=== PATIENT | male | born 1985 | race African-American/Black ===

== ENCOUNTER 2019-01-27 06:58 | Emergency (ER) | payer SELFPAY ==
[~2019-01-27] VITALS: Ht 180.3 cm; Wt 107.7 kg
[~2019-01-27 06:58] MED LIST: AMOXICILLIN500 MG OR; AMOXICILLIN500 MG PO; CLINDAMYCIN300 M1 PO; MUCINEX600 MG PO; NAPROSYN500 MG OR; NO HOME MEDS; ROBITUSSIN AC10 ML OR; SUDAFED 12HR120 MG PO; SUDAFED PO; TORADOL PO; VOLTAREN - GENE75 MG PO; ZITHROMAX250 MG PO
[2019-01-27] MEDS ORDERED: ALL DAY10 MG PO (07:28)
[2019-01-27 07:49] VITALS: BP 131/82
== END 2019-01-27 07:49 | disposition home or self-care (01) | DRG 156 ==
LOC: ED 06:58
DX: H93.8X2 Other specified disorders of left ear (principal)

== ENCOUNTER 2019-02-26 06:41 | Emergency (ER) | payer SELFPAY ==
[~2019-02-26] VITALS: Ht 180.3 cm; Wt 107.2 kg
[~2019-02-26 06:41] MED LIST changes: +ALL DAY10 MG PO; +ULTRAM50 MG PO
[2019-02-26 07:38] LABS: URINE BILIRUBIN - DIPSTICK NEGATIVE (NEGATIVE); URINE BLOOD DIPSTICK SMALL (NEGATIVE); URINE COLOR YELLOW; URINE GLUCOSE - DIPSTICK NEGATIVE (NEGATIVE); URINE KETONE NEGATIVE (NEGATIVE); URINE LEUK ESTERASE NEGATIVE (NEGATIVE); URINE NITRITE - DIPSTICK NEGATIVE (Negative); URINE PROTEIN - DIPSTICK NEGATIVE (NEG-TRACE); URINE UROBILINOGEN - DIPSTICK 0.2 E.U./dL (0.2)
[2019-02-26 07:43] LABS: HEMOGLOBIN 13.1 g/dl (14.0-18.0); IMMATURE GRANULOCYTES 0.1 % (0.0-5.0); MEAN CELL VOLUME 90.3 fL CALC (80.0-100.0); MEAN CORPUSCULAR HGB 29.6 pG CALC (26.0-32.0); MEAN CORPUSCULAR HGB CONC 32.8 g/L CALC (32.0-36.0); NEUT# 5.18 thou/uL (1.82-7.42); RED BLOOD COUNT 4.43 mill/uL (4.70-6.10)
[2019-02-26 07:46] LABS: URINE RBC 0-2 RBC/hpf (0-5); URINE WBC 0-2 WBC/hpf (0-5)
[2019-02-26 08:02] LABS: ALBUMIN 4.2 g/dL (3.2-5.0); ALKALINE PHOSPHATASE 81 u/l (38-126); ANION GAP 15 (6-22 (CALC)); BILIRUBIN, TOTAL 0.7 mg/dL (0.0-1.4); BUN 15 mg/dL (9-20); BUN/CREATININE RATIO 11 (12-20 (CALC)); CARBON DIOXIDE 26 mmol/l (22-30); CHLORIDE 103 mmol/l (95-108); CREATININE 1.4 mg/dL (0.7-1.3); GFR 59 ML/MIN (>=60 (CALC)); GFR FOR AFR.AMER. > 60 ML/MIN (>=60 (CALC)); LIPASE 33 u/l (23-300); POTASSIUM 4.1 mmol/l (3.5-5.1); SGOT/AST 25 u/l (17-59); SODIUM 140 mmol/l (137-146); TOTAL PROTEIN 7.5 g/dL (6.3-8.2)
[2019-02-26] MEDS ORDERED: ONDANSETRON4 MG PO (08:10)
[2019-02-26] MEDS ORDERED: MIRALAX3350 N1 PO (08:10)
[2019-02-26 09:36] VITALS: BP 136/83
== END 2019-02-26 09:36 | disposition home or self-care (01) | DRG 392 ==
LOC: ED 06:41
PROVIDERS: Family Medicine
DX: K52.9 Noninfective gastroenteritis and colitis, unspecified (principal); K29.70 Gastritis, unspecified, without bleeding

== ENCOUNTER 2019-03-20 07:07 | Emergency (ER) | payer BC ==
[~2019-03-20] VITALS: Ht 180.3 cm; Wt 100.0 kg
[~2019-03-20 07:07] MED LIST changes: +MIRALAX3350 N1 PO; +ONDANSETRON4 MG PO
[2019-03-20] MEDS ORDERED: AMOXICILLIN500 M2 PO (07:49)
[2019-03-20 08:02] VITALS: BP 144/76
== END 2019-03-20 08:12 | disposition home or self-care (01) | DRG 153 ==
LOC: ED 07:07
DX: J02.9 Acute pharyngitis, unspecified (principal)

== ENCOUNTER 2020-01-29 08:52 | Emergency (ER) | payer BC ==
[~2020-01-29] VITALS: Ht 182.9 cm; Wt 103.5 kg
[~2020-01-29 08:52] MED LIST changes: +AMOXICILLIN500 M2 PO
[2020-01-29] MEDS ORDERED: AMOXICILLIN500 MG PO (09:44)
[2020-01-29 09:59] VITALS: BP 142/81
== END 2020-01-29 10:13 | disposition home or self-care (01) | DRG 153 ==
LOC: ED 08:52
DX: H66.91 Otitis media, unspecified, right ear (principal); J32.9 Chronic sinusitis, unspecified

== ENCOUNTER 2021-03-05 10:43 | Emergency (ER) | payer BC ==
[~2021-03-05] VITALS: Ht 182.9 cm; Wt 104.4 kg
[2021-03-05] MEDS ORDERED: PROAIR HFA108 MCG/AC PO (12:10)
[2021-03-05] MEDS ORDERED: TAM75CAP PO (12:10)
[2021-03-05 12:35] VITALS: BP 148/74
== END 2021-03-05 12:35 | disposition home or self-care (01) | DRG 153 ==
LOC: ED 10:43
DX: J11.1 Influenza due to unidentified influenza virus with other respiratory manifestations (principal); Z20.822 Contact with and (suspected) exposure to COVID-19

== ENCOUNTER 2021-10-22 18:53 | Emergency (ER) | payer BC ==
[~2021-10-22] VITALS: Ht 182.9 cm; Wt 100.0 kg
[~2021-10-22 18:53] MED LIST changes: +PROAIR HFA108 MCG/AC PO; +TAM75CAP PO
[2021-10-22] MEDS ORDERED: LISINOPRIL2.5 MG PO (20:27)
[2021-10-22] MEDS ORDERED: CHOLESTEROL DEFENSE (20:27)
[2021-10-22 20:58] LABS: HEMATOCRIT 37.5 % (39.0-50.0); HEMOGLOBIN 12.4 g/dl (14.0-18.0); IMMATURE GRANULOCYTES 0.2 % (0.0-5.0); MEAN CELL VOLUME 92.4 fL CALC (80.0-100.0); MEAN CORPUSCULAR HGB 30.5 pG CALC (26.0-32.0); MEAN CORPUSCULAR HGB CONC 33.1 g/dL CAL (32.0-36.0); NEUT# 3.63 thou/uL (1.82-7.42); RED BLOOD COUNT 4.06 mill/uL (4.70-6.10)
[2021-10-22] MEDS ORDERED: PAXLOVID PO (21:09)
[2021-10-22 21:13] LABS: ALBUMIN 4.1 g/dL (3.2-5.0); ALKALINE PHOSPHATASE 71 u/l (38-126); ANION GAP 9 (6-22 (CALC)); BILIRUBIN, TOTAL 0.4 mg/dL (0.0-1.4); BUN 12 mg/dL (9-20); BUN/CREATININE RATIO 11 (12-20 (CALC)); CARBON DIOXIDE 30 mmol/l (22-30); CHLORIDE 103 mmol/l (95-108); CREATININE 1.1 mg/dL (0.7-1.3); GFR FOR AFR.AMER. > 60 ML/MIN (>=60 (CALC)); GFR OTHER RACES > 60 ML/MIN (>=60 (CALC)); POTASSIUM 3.7 mmol/l (3.5-5.1); SGOT/AST 31 u/l (17-59); SODIUM 137 mmol/l (137-146); TOTAL PROTEIN 7.1 g/dL (6.3-8.2)
[2021-10-22] MEDS ORDERED: AMOXICILLIN500 MG PO (21:26)
[2021-10-22 21:49] VITALS: BP 123/65
== END 2021-10-22 22:15 | disposition home or self-care (01) | DRG 179 ==
LOC: ED 18:53
PROVIDERS: Emergency Medicine
DX: U07.1 COVID-19 (principal); J02.9 Acute pharyngitis, unspecified; R50.9 Fever, unspecified; R05.9 Cough, unspecified

== ENCOUNTER 2022-08-23 07:39 | Emergency (ER) | payer BC ==
[~2022-08-23] VITALS: Ht 182.9 cm; Wt 108.4 kg
[~2022-08-23 07:39] MED LIST changes: +CHOLESTEROL DEFENSE; +LISINOPRIL2.5 MG PO; +PAXLOVID PO
[2022-08-23 07:48] VITALS: BP 158/89
[2022-08-23] MEDS ORDERED: DEBROX6.5 % AD (07:54)
[2022-08-23] MEDS ORDERED: ALLERGY RELF10 M3 PO (07:54)
[2022-08-23 08:00] VITALS: BP 136/89
[2022-08-23 08:15] VITALS: BP 137/90
[2022-08-23 08:19] VITALS: BP 137/90
== END 2022-08-23 08:12 | disposition home or self-care (01) | DRG 156 ==
LOC: ED 07:39
DX: H93.8X1 Other specified disorders of right ear (principal); I10 Essential (primary) hypertension; E78.00 Pure hypercholesterolemia, unspecified; R73.03 Prediabetes

== ENCOUNTER 2023-02-20 07:08 | Emergency (ER) | payer BC ==
[2023-02-20] VITALS (10 sets, daily range): BP systolic 121–143; BP diastolic 72–84
[~2023-02-20] VITALS: Ht 182.9 cm; Wt 108.4 kg
[~2023-02-20 07:08] MED LIST changes: +ALLERGY RELF10 M3 PO; +DEBROX6.5 % AD
[2023-02-20] MEDS ORDERED: LISINOPRIL20 M1 PO (07:19)
[2023-02-20] MEDS ORDERED: CRESTOR5 MG PO (07:20)
[2023-02-20 07:50] LABS: BASO% 0.5 % (0-3); EOS% 0.5 % (0-8); HEMOGLOBIN 13.5 g/dl (14.0-18.0); IMMATURE GRANULOCYTES 0.2 % (0.0-5.0); MEAN CELL VOLUME 91.3 fL CALC (80.0-100.0); MEAN CORPUSCULAR HGB 30.8 pG CALC (26.0-32.0); MEAN CORPUSCULAR HGB CONC 33.8 g/dL CAL (32.0-36.0); MONO% 10.5 % (2-13); NEUT# 3.17 thou/uL (1.82-7.42); NEUT% 55.3 % (42-76); RED BLOOD COUNT 4.38 mill/uL (4.70-6.10); RED CELL DISTRI WIDTH 11.9 % (11.5-15.5)
[2023-02-20 08:08] LABS: ALBUMIN 4.5 g/dL (3.2-5.0); ALKALINE PHOSPHATASE 78 u/l (38-126); ANION GAP 12 (6-22 (CALC)); BILIRUBIN, TOTAL 1.1 mg/dL (0.2-1.3); BUN 15 mg/dL (9-20); BUN/CREATININE RATIO 17 (12-20 (CALC)); CARBON DIOXIDE 26 mmol/l (22-30); CHLORIDE 104 mmol/l (95-108); CREATININE 0.8 mg/dL (0.7-1.3); GFR FOR AFR.AMER. > 60 ML/MIN (>=60 (CALC)); GFR OTHER RACES > 60 ML/MIN (>=60 (CALC)); POTASSIUM 4.4 mmol/l (3.5-5.1); SODIUM 138 mmol/l (137-146); TOTAL PROTEIN 7.5 g/dL (6.3-8.2)
[2023-02-20 08:09] LABS: SGOT/AST 55 u/l (17-59)
== END 2023-02-20 09:35 | disposition home or self-care (01) | DRG 103 ==
LOC: ED 07:08
PROVIDERS: Family Medicine
DX: R51.9 Headache, unspecified (principal); I10 Essential (primary) hypertension; R73.03 Prediabetes; E78.00 Pure hypercholesterolemia, unspecified; Z20.822 Contact with and (suspected) exposure to COVID-19